=== PATIENT | male | born 1970 | race Caucasian/White ===

== ENCOUNTER 2021-09-06 10:03 | Emergency (ER) | payer MEDICARE, SELFPAY ==
--- NOTE | ~2021-09-06 | XR_ITS ---
EXAMINATION: XR finger 4th LT min 2V DATE: 09/06/2021 10:39 INDICATION: Ecchymosis and pain at the left fourth finger TECHNIQUE: Dorsal palmar, lateral and 2 oblique views of the left fourth digit were obtained COMPARISON: None FINDINGS: Nondisplaced small volar plate avulsion fracture at the volar base of the fourth middle phalanx. Ruthie articular soft tissue swelling and/or effusion at the fourth proximal interphalangeal joint. Joint sp aces are normal. IMPRESSION: 1. Nondisplaced volar plate avulsion fracture at the base of the fourth middle phalanx. Reviewed, dictated and finalized at location A. RINARY VIROLOGIST
[2021-09-06 10:20] VITALS: BP 116/88; PULSE 82; RESP 16; TEMP 37; O2SAT 98
--- NOTE | 2021-09-06 10:50 | ED.UPPEXIN ---
HPI - Extremity Injury (Upper) General Chief Complaint: Extremity Injury, Upper Stated Complaint: Broken left finger Source: patient and RN notes reviewed Limitations: no limitations Related Data Home Medications Medication Instructions Recorded Confirmed No Home Medications 09/06/21 09/06/21 Allergies Allergy/AdvReac Type Severity Reaction Status Date / Time Penicillins Allergy Swelling Verified 09/06/21 10:20 [facility] Social History Social History Smoking status: Never smoker Course Vital Signs Vital signs: Vital Signs Temperature 98.6 F 09/06/21 10:20 Pulse Rate 82 09/06/21 10:20 Respiratory Rate 16 09/06/21 10:20 Blood Pressure 116/88 09/06/21 10:20 Pulse Oximetry 98 09/06/21 10:20 Temperature 98.6 F 09/06/21 10:20 Pulse Rate 82 09/06/21 10:20 Respiratory Rate 16 09/06/21 10:20 Blood Pressure 116/88 09/06/21 10:20 Pulse Oximetry 98 09/06/21 10:20 Discharge Plan Discharge Prescriptions: No Action No Home Medications RF: 0
--- NOTE | 2021-09-06 10:52 | ED.UPPEXIN ---
HPI - Extremity Injury (Upper) General Chief Complaint: Extremity Injury, Upper Stated Complaint: Broken left finger Source: patient and RN notes reviewed Limitations: no limitations History of Present Illness HPI narrative: The patient, who has frontal dementia, presents with ring finger injury. Caregiver mentions patient has left finger that is swollen and minimally tender, after reportedly unwitnessed fall yesterday. He complains of mild to minimal pain, that is worse with motion, better or rest located the PIPJ. No bleeding, deformity Related Data Home Medications Medication Instructions Recorded Confirmed No Home Medications 09/06/21 09/06/21 Allergies Allergy/AdvReac Type Severity Reaction Status Date / Time Penicillins Allergy Swelling Verified 09/06/21 10:20 Review of Systems Review of Systems: General/Constitutional: No weight loss,fever Eyes: N0: Redness,discharge Ears/Nose/Throat: No: Epistaxis,ear discharge Respiratory: Denies: Hemoptysis Gastrointestinal: No Vomiting, Bleeding-rectal Skin: No Lumps, eruption Neurologic: No Focal Weakness,Sz Hematologic: Denies: Petechiae/Purpura Psychiatric: No: Suicida ideationl All Other Systems: Reviewed and Negative [facility] Social History Social History Smoking status: Never smoker Comments At time of signature, agree with nursing past medical, surgical, social and family history. There is no relevant family history pertinent to the presenting complaint Exam Narrative: General Appearance: Well appearing, Conjunctiva clear Ears: External ear normal, Auditory canal normal Nose: Normal nose, Nares clear Mouth/Throat: Normal appearing, Normal lips Neck: Supple Respiratory: Airway patent, No respiratory distress MS-finger: Normal strength (mostly intact, limited flexion/extension by pain), Tenderness (PIPJ, with mild decreased ROM), Swelling (diffusely), Other (no anterior drawer, no collateral laxity, ) Skin: Warm, Dry, Normal color Neurological: Awake alert pleasantly demented normal mood Course Course Emergency Course: Films visualized, interpreted by radiologist, agree, ABnormal see report Vital Signs Vital signs: Vital Signs Temperature 98.6 F 09/06/21 10:20 Pulse Rate 82 09/06/21 10:20 Respiratory Rate 16 09/06/21 10:20 Blood Pressure 116/88 09/06/21 10:20 Pulse Oximetry 98 09/06/21 10:20 Temperature 98.6 F 09/06/21 10:20 Pulse Rate 82 09/06/21 10:20 Respiratory Rate 16 09/06/21 10:20 Blood Pressure 116/88 09/06/21 10:20 Pulse Oximetry 98 09/06/21 10:20 Discharge Plan Discharge Clinical Impression: Finger fracture, left Patient Disposition: Home, Self-Care Condition: Improved Instructions: Finger Fracture (ED) Additional Instructions: You may use OTC pain meds, wear splint, see hand surgeon follow-up [references provided] Prescriptions: No Action No Home Medications RF: 0 Follow-up/Referrals: PHYSICIAN,SCHOOL LEADER [Primary Care Provider] -
== END 2021-09-06 11:06 | disposition home or self-care (01) ==
PROVIDERS: Emergency Provider Emergency Medicine
DX: S62.643A Nondisplaced fracture of proximal phalanx of left middle finger, initial encounter for closed fracture (principal); W19.XXXA Unspecified fall, initial encounter; F03.90 Unspecified dementia, unspecified severity, without behavioral disturbance, psychotic disturbance, mood disturbance, and anxiety
CPT/HCPCS: 29130; 73140; 99204; G0463

== ENCOUNTER 2021-12-16 22:19 | Emergency (ER) | payer MEDICARE, SELFPAY ==
--- NOTE | ~2021-12-16 | XR_ITS ---
XR hand LT 2V DATE: 12/16/2021 23:54 INDICATION: Foreign body. Cut hand with gill box tender. TECHNIQUE: AP and lateral views COMPARISON: None FINDINGS: Examination is limited, with nonstandard positioning can with superimposed metacarpals and phalanges on AP and lateral views No fracture or dislocation, periosteal reaction or bone destruction . Mild soft tissue irregularity is noted dorsally in the metacarpophalangeal area on the lateral view . No radiopaque soft tissue foreign body is evident. IMPRESSION: No radiopaque foreign body noted Reviewed, dictated and finalized at location A.
[2021-12-16 22:22] VITALS: BP 136/84; PULSE 81; RESP 16; TEMP 36.6; O2SAT 100
--- NOTE | 2021-12-17 00:22 | ED.WOUNDLAC ---
HPI - Wound/Laceration General Chief Complaint: Wound/Laceration <MOISÉS Martin Last Filed: 12/17/21 01:45> Stated Complaint: cut hand <MOISÉS Martin Last Filed: 12/17/21 01:45> Time Seen by Provider: 12/16/21 23:33 <MOISÉS Martin Last Filed: 12/17/21 01:45> Source: patient <MOISÉS Martin Last Filed: 12/17/21 01:45> Mode of arrival: ambulatory <MOISÉS Martin Last Filed: 12/17/21 01:45> Limitations: no limitations <MOISÉS Martin Last Filed: 12/17/21 01:45> History of Present Illness HPI narrative: Patient is a 51-year-old R hand dominant male who presents ED reports of a laceration of his left palmar surface. Patient reports he was cutting boxes with a box tender around 9 PM last night when he slipped and cut himself with the box tender. He sustained a laceration to his left palmar region, but denies any significant pain. Per patient's records, tetanus updated in 2016. No other injury. No numbness/tingling, weakness in L hand. Patient did fracture his left hand 1 year ago. The fracture was non-surgical. <MOISÉS Martin Last Filed: 12/17/21 01:45> Related Data Home Medications: Home Medications Medication Instructions Recorded Confirmed No Home Medications 09/06/21 10/16/21 <MOISÉS Martin Last Filed: 12/17/21 01:45> Allergies/Adverse Reactions: Allergies Allergy/AdvReac Type Severity Reaction Status Date / Time Penicillins Allergy Swelling Verified 12/16/21 22:28 <MOISÉS Martin Last Filed: 12/17/21 01:45> Review of Systems Review of Systems: CONSTITUTIONAL: Denies fever, chills, or sweats. SKIN: Reports laceration to left palmar surface. Denies rash or itching. MUSCULOSKELETAL: Denies joint pain. NEUROLOGIC: Denies numbness or weakness. <Terri Kamara PA-C - Last Filed: 12/17/21 01:45> All systems reviewed & are unremarkable except as noted in HPI and below <Terri Kamara PA-C - Last Filed: 12/17/21 01:45> PMFSH Past Medical History Medical History: Medical History (Updated 12/17/21 @ 01:37 by Terri Kamara PA-C) Broken foot Bulbar palsy <Terri Kamara PA-C - Last Filed: 12/17/21 01:45> Surgical History Surgical History: Surgical History (Updated 12/17/21 @ 01:37 by Terri Kamara PA-C) No pertinent past surgical history <Terri Kamara PA-C - Last Filed: 12/17/21 01:45> Family History Family History: Family History Mother Bulbar palsy <Terri Kamara PA-C - Last Filed: 12/17/21 01:45> Social History Social History: Social History Smoking status: Never smoker Alcohol intake: never Substance use: never Substance use type: does not use <Terri Kamara PA-C - Last Filed: 12/17/21 01:45> Exam Narrative: GENERAL: Well appearing, well-nourished, non-toxic, in no acute distress. HEAD: Normocephalic, atraumatic. NECK: Supple. No adenopathy, no masses. RESPIRATORY: Airway patent, respirations nonlabored. CARDIOVASCULAR: Regular rate and rhythm. Radial pulses 2+ and equal bilaterally. MUSCULOSKELETAL: Moves all extremities. Strength/ROM/sensation intact in L hand. No tenderness to palpation of left metacarpals. SKIN: 5 cm linear laceration to left medial palmar surface approximately 1 cm below creases of left fourth and fifth digits. Warm, dry. No rashes. NEURO: A&O X3. Speech clear. Cranial nerves II-XII grossly intact. Steady gait. No ataxic movements. PSYCHIATRIC: Appropriate mood and affect. Normal interaction. <Terri Kamara PA-C - Last Filed: 12/17/21 01:45> Course DIRECTOR HEMATOLOGY/PA Physician Supervision I did not see this patient but the care plan was discussed with me. I agree with the documentation as above <Idris Ferrer MD - Last Filed: 12/17/21 02:33> Vital Signs Vital signs: Vital Signs
[2021-12-17 02:00] VITALS: BP 128/87; PULSE 85; RESP 18; TEMP 36.6; O2SAT 99
== END 2021-12-17 02:01 | disposition home or self-care (01) ==
PROVIDERS: Emergency Provider Emergency Medicine
DX: S61.412A Laceration without foreign body of left hand, initial encounter (principal); W27.0XXA Contact with workbench tool, initial encounter
CPT/HCPCS: 12002; 73120; 99283

== ENCOUNTER 2021-12-25 12:14 | Emergency (ER) | payer MEDICARE, SELFPAY ==
[2021-12-25 12:23] VITALS: BP 102/84; PULSE 68; RESP 16; TEMP 36.8; O2SAT 100
--- NOTE | 2021-12-25 12:37 | ED.WOUNDLAC ---
HPI - Wound/Laceration General Chief Complaint: Wound/Laceration Stated Complaint: Stitches taken out Time Seen by Provider: 12/25/21 12:35 Source: patient and RN notes reviewed Mode of arrival: ambulatory Limitations: no limitations History of Present Illness HPI narrative: 51 your male presents concern for suture removal. Reports he received stitches 8 days ago after he cut himself with a hand box coverer. Reports has been keeping area clean and using Neosporin. He denies any redness, swelling, pain beyond proportion. Related Data Home Medications Medication Instructions Recorded Confirmed No Home Medications 09/06/21 12/25/21 Allergies Allergy/AdvReac Type Severity Reaction Status Date / Time Penicillins Allergy Swelling Verified 12/25/21 12:26 Review of Systems Review of Systems: CONSTITUTIONAL: Denies malaise, chills, sweats, or fever. SKIN: Reports healing laceration with intact sutures to the left hand MUSCULOSKELETAL: Denies muscle skeletal pain NEUROLOGIC: Denies numbness, weakness All systems reviewed & are unremarkable except as noted in HPI and below PMFSH Past Medical History Medical History (Updated 12/25/21 @ 12:40 by Tri Burciaga NP) Broken foot Bulbar palsy Surgical History Surgical History (Updated 12/17/21 @ 01:37 by Terri Kamara PA-C) No pertinent past surgical history Family History Family History Mother Bulbar palsy Social History Social History Smoking status: Never smoker Alcohol intake: never Substance use: never Substance use type: does not use Comments At time of signature, agree with nursing past medical, surgical, social and family history. There is no relevant family history pertinent to the presenting complaint Exam Narrative: GENERAL: Well-appearing, well-nourished, and in no acute distress. HEAD: Normocephalic, atraumatic. ENT: Mucous membranes moist. NECK: Supple. No lymphadenopathy CHEST: Clear to auscultation. No respiratory distress. HEART: Regular rate and rhythm. SKIN: Warm, dry. 8 intact sutures noted to the palmar aspect of the left hand, wound healed, edges well approximated, no erythema, induration, edema or tenderness. NEURO: Alert and oriented x3. PSYCH: Normal mood and affect Course Course Emergency Course: Patient is aware of diagnosis, understands and agrees to treatment plan. Anticipatory guidance given. Patient agrees to follow-up as directed and is aware of reasons to seek care at the emergency department. Portions of this record may have been created with voice recognition software Level of Care: Express Care Visit Vital Signs Vital signs: Reviewed. MDM - Wound/Laceration MDM Narrative Medical decision making narrative: Verbal consent was obtained. Wound well approximated, no erythema, induration, or discharge noted. 8 completely removed in a sterile fashion. Patient tolerated procedure well, no complications. Patient advised to look for and return for any signs of infection such as redness, swelling, discharge, or worsening pain. Differential Diagnosis Differential diagnosis: Likely laceration, abrasion and avulsion of skin Critical Care Time Critical Care Time Critical Care Time: No Discharge Plan Discharge Clinical Impression: Encounter for removal of sutures Patient Disposition: Home, Self-Care Condition: Stable Instructions: Stitches Removal (ED) Additional Instructions: AFTER the stitches are removed: Clean your wound as directed. Carefully wash your wound with soap and water. Pat the area dry with a clean towel. Protect your wound. Your wound can swell, bleed, or split open if it is stretched or bumped. You may need to wear a bandage that supports your wound until it is completely healed. How to minimize a scar: After sutures are removed, keep your scar out of the sun. Use sunbloc
== END 2021-12-25 12:50 | disposition home or self-care (01) ==
PROVIDERS: Emergency Provider Nurse Practitioner
DX: S61.412D Laceration without foreign body of left hand, subsequent encounter (principal); W26.8XXD Contact with other sharp object(s), not elsewhere classified, subsequent encounter
CPT/HCPCS: 99211; G0463

== ENCOUNTER 2024-02-03 19:46 | Emergency (ER) | payer MEDICARE, SELFPAY ==
[2024-02-03 19:51] VITALS: BP 135/75; PULSE 80; RESP 16; O2SAT 98
[2024-02-03 20:06] VITALS: PULSE 77; RESP 18; O2SAT 100
--- NOTE | 2024-02-03 20:11 | ED.GENADULT ---
HPI - General Adult General Chief complaint: Extremity Injury, Upper Stated complaint: left arm laceration/ fell Time Seen by Provider: 02/03/24 20:04 History of Present Illness HPI narrative: patient is a 53-year-old gentleman who presents emergency department with chief complaint of laceration to left upper extremity. Patient reports that he tripped over his dog and landed on a metal dog bowl dog bowl cause an incision to his left forearm patient reports he has full range of motion denies numbness or tingling distal to the injury bleeding was controlled with a bandage applied prior to arrival. Patient reports his last tetanus shot was approximately 3 years ago Related Data Home Medications Medication Instructions Recorded Confirmed No Home Medications 09/06/21 12/25/21 Allergies Allergy/AdvReac Type Severity Reaction Status Date / Time Penicillins Allergy Swelling Verified 02/03/24 19:57 Review of Systems Review of Systems: A 10 system review of systems was completed on the patient and is negative except for what is stated in the HPI. Nursing and ancillary documentation was reviewed. [facility] Past Medical History Medical History Broken foot Bulbar palsy Surgical History Surgical History No pertinent past surgical history Family History Family History Mother Bulbar palsy Social History Social History Smoking status: Never smoker Alcohol intake: never Substance use: never Substance use type: does not use Exam Narrative: GENERAL: Well-appearing, well-nourished, and in no acute distress. HEAD: Normocephalic, atraumatic. EYES: PERRLA and EOMI. ENT: Nares clear, no rhinorrhea or epistaxis. Mucous membranes moist. NECK: Supple. CHEST: Clear to auscultation. No respiratory distress. HEART: Regular rate and rhythm. No murmur heard. Normal peripheral pulses. ABDOMEN: Soft, nontender, nondistended, normal active bowel sounds. EXTREMITIES: Normal range of motion. No edema. SKIN: Warm, dry, no rash. there is a laceration present to the left forearm on the ulnar aspect approximately 9 cm in length NEURO: No focal deficits. Alert and oriented x3. PSYCH: Normal mood and affect. Course Vital Signs Vital signs: Vital Signs Pulse Rate 80 02/03/24 19:51 Respiratory Rate 16 02/03/24 19:51 Blood Pressure 135/75 02/03/24 19:51 Pulse Oximetry 98 02/03/24 19:51 Oxygen Delivery Room Air 02/03/24 19:51 Pulse Rate 77 02/03/24 20:06 Respiratory Rate 18 02/03/24 20:06 Blood Pressure 135/75 02/03/24 19:51 Pulse Oximetry 100 02/03/24 20:06 Oxygen Delivery Room Air 02/03/24 19:51 Procedures Laceration Laceration 1: Date: 02/03/24 Time: 20:48 Site: upper extremity (left forearm) Side (If applicable): left Size (cm): 9 Description: linear Depth: involves muscle layer Local Anesthetic: lidocaine 1% and with epi Amount of anesthesia used (mL): 10 Pre-repair: wound explored and irrigated extensively ====== Skin Level ====== Skin layer closed with: nylon Size (cm): 4-0 Number of sutures: 10 Technique: simple, interrupted ====== Subcutaneous Layer ====== Subcutaneous layer closed with: vicryl Size: 4-0 Number of sutures: 3 Technique: simple, interrupted ====== Muscle Layer ====== ====== Tendon Layer ====== Medical Decision Making Vital Signs Vital Signs: Vital Signs Pulse Rate 80 02/03/24 19:51 Respiratory Rate 16 02/03/24 19:51 Blood Pressure 135/75 02/03/24 19:51 Pulse Oximetry 98 02/03/24 19:51 Oxygen Delivery Room Air 02/03/24 19:51 Pulse
[2024-02-03 21:22] VITALS: BP 142/84; PULSE 69; RESP 15; O2SAT 100
== END 2024-02-03 21:24 | disposition home or self-care (01) ==
PROVIDERS: Emergency Provider Emergency Medicine
DX: S51.812A Laceration without foreign body of left forearm, initial encounter (principal); W18.09XA Striking against other object with subsequent fall, initial encounter
CPT/HCPCS: 12034; 99282

== ENCOUNTER 2025-07-22 11:45 | Emergency (ER) | payer MEDICARE, SELFPAY ==
[2025-07-22 12:02] VITALS: BP 127/86; PULSE 80; RESP 16; TEMP 36.4; O2SAT 98
--- NOTE | 2025-07-22 13:09 | ED_ITS ---
HPI - Fall General Chief Complaint: Fall Stated Complaint: fall Time Seen by Provider: 07/22/25 12:47 Source: patient and family Mode of arrival: wheelchair Limitations: no limitations History of Present Illness HPI Narrative: This is a 54-year-old male who presents to the ED for fall and laceration. and better and states that patient has difficulty with balance and he tried to stand up without his cane in ended up falling and hitting his right moravian on end table and had a laceration. He did not have loss conscious. He has been acting at his baseline since then. He is not on any blood thinners. Denies any other injuries at this time. Up-to-date on tetanus. Related Data Home Medications ?Medication ?Instructions ?Recorded ?Confirmed ?Last Taken ?Type No Home Medications 09/06/21 12/25/21 U nknown History Allergies Allergy/AdvReac Type Severity Reaction Status Date / Time Penicillins Allergy Swelling Verified 02/03/24 19:57 Review of Systems Review of Systems: Gen.: Denies fevers or chills Eyes: Denies eye pain or visual change ENT: Denies congestion Respiratory: Denies shortness of breath or cough CV: Denies chest pain or palpitations GI: Denies abdominal pain nausea, emesis or diarrhea denies burning, urgency, frequency or hematuria Musculoskeletal: Denies back pain or muscle pain Neuro: Denies numbness, tingling, weakness or focal weakness Skin: Denies rash Except as documented, all other systems reviewed and negative PMFSH Past Medical History Medical History Bulbar palsy Broken foot Surgical History Surgical History No pertinent past surgical history Family History Family History Mother Bulbar palsy Social History Social History Smoking status: Never smoker Alcohol intake: never Substance use: never Substance use type: does not use Exam Narrative: APPEARANCE: No acute distress, nontoxic, resting in bed EYES: EOMI HEENT: Normocephalic, 2 cm laceration to the lateral right brow, mild tenderness to palpation, OMM RESPIRATORY: No respiratory distress Clear to auscultation bilaterally with no rhonchi wheezing or rales. CARDIOVASCULAR: Regular rate and rhythm without murmurs rubs or gallops. ABDOMINAL: Soft, nontender, nondistended, no rebound or guarding MUSCULOSKELETAl: Moves all extremities. No clubbing, cyanosis or edema. NEURO: Awake and alert. Following commands, speech normal, no focal deficits SKIN:: Warm, dry. No rashes lesions or abrasions PSYCHIATRIC: Normal affect/mood, Course Vital Signs Vital signs: Vital Signs Temperature 97.6 F 07/22/25 12:02 Pulse Rate 80 07/22/25 12:02 Respiratory Rate 16 07/22/25 12:02 Blood Pressure 127/86 07/22/25 12:02 Pulse Oximetry 98 07/22/25 12:02 Temperature 97.6 F 07/22/25 12:02 Pulse Rate 61 07/22/25 14:19 Respiratory Rate 17 07/22/25 14:19 Blood Pressure 129/98 H 07/22/25 14:19 Pulse Oximetry 98 07/22/25 14:19 Procedures Laceration Laceration 1: Date: 07/22/25 Time: 13:35 Site: face Side (If applicable): right Size (cm): 2 Description: stellate Depth: simple, single layer Local Anesthetic: lidocaine 1% and with epi Amount of anesthesia used (mL): 5 Pre-repair: wound explored and irrigated ====== Skin Level ====== Skin layer closed with: other (fast absorbing gut) Size (cm): 5-0 Number of sutures: 5 Technique: simple, interrupted ====== Subcutaneous Layer ====== ====== Muscle Layer ====== ====== Tendon Layer ====== MDM - Fall MDM Narrative Medical decision making narrative: 54-year-old male presented fall and laceration. On initial evaluation, patient was in acute distress, afebrile, hemodynamically stable. He was at his baseline per family. He did have a 2 cm stellate laceration to his right lateral brow with bleeding controlled. No involvement of the eye itself. Additional imaging is not indicated at this time is the head new loss of conscious, he is not on any blood thinners, he has no focal changes or behavioral changes at this time. Laceration was repaired as above, patient tolerated procedure well. Patient was deemed appropriate for discharge at this time. He was advised follow-up with PCP in the next week for re-evaluation if needed. Patient and family were agreeable to the plan. Given strict return precautions. Differential Diagnosis Differential diagnosis: Likely other (Laceration, contusion, hematoma) Medical Records Attestation: I reviewed the patient's medical records. Discharge Plan Discharge Clinical Impression: Laceration Fall Qualifiers: Encounter type: initial encounter Qualified Code(s): W19.XXXA - Unspecified fall, initial encounter Patient Disposition: Home Condition: Stable Instructions: Antibiotic Form, Laceration (ED), Care For Your Absorbable Stitches (ED) Additional Instructions: The sutures should absorb in the next 7-10 days. They will fall out their own eventually. Follow-up with your PCP in the next week for re-evaluation if needed. Return to the ED for any new or worsening symptoms. Patient Language: Gambian Prescriptions: No Action No Home Medications Follow-up/Referrals: PHYSICIAN NOT ON STAFF,NONSTAFF [Primary Care Provider] Dino Heller MD [Physician, Family Practice]
[2025-07-22] MEDS: LIDO 1%/EPINEPHRINE 1:100,000 20 ML VIAL 5 ML INFILTRATE (14:18)
[2025-07-22 14:19] VITALS: BP 129/98; PULSE 61; RESP 17; O2SAT 98
== END 2025-07-22 14:21 | disposition home or self-care (01) ==
PROVIDERS: Emergency Provider Student in an Organized Health Care Education/Training Program
DX: S01.81XA Laceration without foreign body of other part of head, initial encounter (principal); G12.22 Progressive bulbar palsy; W01.190A Fall on same level from slipping, tripping and stumbling with subsequent striking against furniture, initial encounter
CPT/HCPCS: 12011; 99282; J2004